=== PATIENT | male | born 1980 | race Two or more races ===

== ENCOUNTER 2023-01-21 16:00 | Inpatient (IN) | payer OTHER ==
[2023-01-21 16:48] VITALS: BMI 22.4
[2023-01-21] MEDS ORDERED: NALOXONE HCL (KLOXXADO) 8 MG SPRAY NS PRN (18:48)
[2023-01-21] MEDS ORDERED: LOPERAMIDE HCL 2 MG CAPSULE PO PRN (18:48)
[2023-01-21] MEDS ORDERED: IBUPROFEN 400 MG TABLET (FP) PO PRN (18:48)
[2023-01-21] MEDS ORDERED: hydrOXYzine PAMOATE 25 MG CAPSULE (FP) PO PRN (18:48)
[2023-01-21] MEDS ORDERED: ONDANSETRON *ODT* 4 MG TABLET SL PRN (18:48)
[2023-01-21] MEDS ORDERED: NALOXONE HCL 0.4 MG/ML VIAL IM PRN (18:48)
[2023-01-21] MEDS ORDERED: BISMUTH SUBSALICYLATE 524 MG/30 ML PO PRN (18:48)
[2023-01-21] MEDS ORDERED: P-EPHED 60MG/TRIPROLIDI 2.5MG TABLET PO PRN (18:48)
[2023-01-21] MEDS ORDERED: ACETAMINOPHEN 325 MG TABLET (FP) PO PRN ×2 (18:48)
[2023-01-21] MEDS ORDERED: BENZOCAINE/MENTHOL (CHLORASEPTIC ) LOZENGE MM PRN (18:48)
[2023-01-21] MEDS ORDERED: MAGNESIUM HYDROX 2400MG/30ML ORAL SUSPENSION 30 ML CUP PO PRN (18:48)
[2023-01-21] MEDS ORDERED: BENZONATATE 200 MG CAPSULE PO PRN (18:48)
[2023-01-21] MEDS ORDERED: POLYETHYLENE GLYCOL (HEALTHYLAX) 3350 17 GM PACKET PO PRN (18:48)
[2023-01-21] MEDS ORDERED: MAG HYDROX/AL HYDROX/SIMETH 30 ML UNIT-DOSE CUP PO PRN (18:48)
[2023-01-21] MEDS ORDERED: guaiFENesin 600 MG TABLET.ER (FP) PO PRN (18:48)
[2023-01-21] MEDS ORDERED: DICYCLOMINE HCL 10 MG CAPSULE ONE (19:43)
[2023-01-21] MEDS ORDERED: cloNIDine HCL 0.1 MG TABLET ONE (19:43)
[2023-01-21] MEDS ORDERED: METHOCARBAMOL 500 MG TABLET ONE (19:43)
[2023-01-21] MEDS: METHOCARBAMOL 500 MG TABLET PO PRN (19:49)
[2023-01-21] MEDS: cloNIDine HCL 0.1 MG TABLET PO PRN (19:49)
[2023-01-21] MEDS: DICYCLOMINE HCL 10 MG CAPSULE PO PRN (19:49)
[2023-01-21] MEDS: THIAMINE HCL 100 MG TABLET (FP) PO SCH (22:29)
[2023-01-21] MEDS: MELATONIN 5 MG TABLETS PO SCH (22:29)
[2023-01-22 10:13] LABS: POTASSIUM 4.1 mmol/L (3.5-5.1)
[2023-01-22 10:18] LABS: HEMATOCRIT 39.3 % (35.4-49); HEMOGLOBIN 13.2 GM/dL (11.7-16.9); MCH 29.4 pg (25.7-33.7); MCHC 33.7 g/dl (32.0-35.9); MEAN CELL VOLUME 87.4 fl (80-96); MEAN PLT VOLUME 8.4 fl (7.5-11.1); PLATELET COUNT 307 10^3/uL (134-434); RDW 13.2 % (11.9-15.9); WHITE BLOOD COUNT 5.7 K/mm3 (4.0-10.0)
[2023-01-22 10:21] LABS: BLOOD UREA NITROGEN 16.6 mg/dL (7-18)
[2023-01-22 10:22] LABS: ALBUMIN 3.6 g/dl (3.4-5.0); BILIRUBIN,TOTAL 0.7 mg/dL (0.2-1); TOT PROT 7.2 g/dl (6.4-8.2)
[2023-01-22 10:23] LABS: CALCIUM 9.7 mg/dL (8.5-10.1)
[2023-01-22] MEDS: METHOCARBAMOL 500 MG TABLET PO PRN ×2 (10:24→17:07)
[2023-01-22] MEDS: PRENATAL VITAMINS W/ FOLIC ACID TABLET (FP) PO SCH (10:24)
[2023-01-22] MEDS: DICYCLOMINE HCL 10 MG CAPSULE PO PRN (10:25)
[2023-01-22] MEDS: IBUPROFEN 600 MG TABLET (FP) PO PRN ×2 (10:25→17:08)
[2023-01-22] MEDS: MELATONIN 5 MG TABLETS PO SCH (22:57)
[2023-01-22] MEDS: THIAMINE HCL 100 MG TABLET (FP) PO SCH (22:57)
[2023-01-23 06:43] VITALS: PULSE 79
[2023-01-23 09:07] VITALS: BP 143/86; RESP 18; TEMP 98
[2023-01-23] MEDS: PRENATAL VITAMINS W/ FOLIC ACID TABLET (FP) PO SCH (09:57)
[2023-01-23] MEDS: cloNIDine HCL 0.1 MG TABLET PO PRN (09:57)
[2023-01-23] MEDS: IBUPROFEN 600 MG TABLET (FP) PO PRN (09:58)
== END 2023-01-23 12:20 | disposition other institution (70) | DRG 774 ==
LOC: YASAS 16:00 → Y6N 19:35
PROVIDERS: ADMIT Allergy & Immunology; ATTEND Surgery
PROC: HZ2ZZZZ Detoxification Services for Substance Abuse Treatment (ICD-10-PCS; principal; 2023-01-21)
DX: F14.20 Cocaine dependence, uncomplicated (principal)
CPT/HCPCS: 36415; 80053; 85027; 86780; 87635; 87811

== ENCOUNTER 2023-01-23 12:32 | Inpatient (IN) | payer OTHER ==
[~2023-01-23 12:32] MED LIST: ACETAMINOPHEN 325 MG TABLET (FP) PO PRN; AMMONIUM LACTATE 12% LOTION 225 GM BOTTLE TP PRN; BENZOCAINE/MENTHOL (CHLORASEPTIC ) LOZENGE MM PRN; BENZONATATE 200 MG CAPSULE PO PRN; COLLOIDAL OATMEAL 1 BAR EACH TP PRN; IBUPROFEN 400 MG TABLET (FP) PO PRN; IBUPROFEN 600 MG TABLET (FP) PO PRN; LOPERAMIDE HCL 2 MG CAPSULE PO PRN; MAG HYDROX/AL HYDROX/SIMETH 30 ML UNIT-DOSE CUP PO PRN; MAGNESIUM HYDROX 2400MG/30ML ORAL SUSPENSION 30 ML CUP PO PRN; NICOTINE 10 MG CARTRIDGE (INHALER) IH PRN; NICOTINE 7 MG/24 HOURS TOPICAL PATCH TD PRN; NICOTINE POLACRILEX 2 MG GUM BUC PRN; POLYETHYLENE GLYCOL (HEALTHYLAX) 3350 17 GM PACKET PO PRN; guaiFENesin 600 MG TABLET.ER (FP) PO PRN; hydrOXYzine PAMOATE 25 MG CAPSULE (FP) PO PRN
[2023-01-23] MEDS: THIAMINE HCL 100 MG TABLET (FP) PO SCH (21:11)
[2023-01-23] MEDS: MELATONIN 5 MG TABLETS PO SCH (21:11)
[2023-01-24] MEDS: PRENATAL VITAMINS W/ FOLIC ACID TABLET (FP) PO SCH (09:41)
[2023-01-24] MEDS: THIAMINE HCL 100 MG TABLET (FP) PO SCH (21:08)
[2023-01-24] MEDS: MELATONIN 5 MG TABLETS PO SCH (21:08)
[2023-01-25] MEDS: PRENATAL VITAMINS W/ FOLIC ACID TABLET (FP) PO SCH (09:33)
[2023-01-25] MEDS: THIAMINE HCL 100 MG TABLET (FP) PO SCH (21:22)
[2023-01-25] MEDS: MELATONIN 5 MG TABLETS PO SCH (21:22)
[2023-01-26] MEDS: PRENATAL VITAMINS W/ FOLIC ACID TABLET (FP) PO SCH (09:29)
[2023-01-26] MEDS: METHOCARBAMOL 500 MG TABLET PO PRN (16:38)
[2023-01-26] MEDS: MELATONIN 5 MG TABLETS PO SCH (21:29)
[2023-01-26] MEDS: THIAMINE HCL 100 MG TABLET (FP) PO SCH (21:29)
[2023-01-27] MEDS: PRENATAL VITAMINS W/ FOLIC ACID TABLET (FP) PO SCH (09:37)
[2023-01-27] MEDS: METHOCARBAMOL 500 MG TABLET PO PRN (09:38)
[2023-01-27] MEDS: THIAMINE HCL 100 MG TABLET (FP) PO SCH (21:21)
[2023-01-27] MEDS: MELATONIN 5 MG TABLETS PO SCH (21:21)
[2023-01-28 07:05] VITALS: RESP 18
[2023-01-28] MEDS: PRENATAL VITAMINS W/ FOLIC ACID TABLET (FP) PO SCH (09:45)
[2023-01-28] MEDS: METHOCARBAMOL 500 MG TABLET PO PRN ×2 (09:46→21:21)
[2023-01-28] MEDS: THIAMINE HCL 100 MG TABLET (FP) PO SCH (21:21)
[2023-01-28] MEDS: MELATONIN 5 MG TABLETS PO SCH (21:21)
[2023-01-29] MEDS: PRENATAL VITAMINS W/ FOLIC ACID TABLET (FP) PO SCH (09:54)
[2023-01-29] MEDS: METHOCARBAMOL 500 MG TABLET PO PRN (09:55)
[2023-01-29] MEDS: THIAMINE HCL 100 MG TABLET (FP) PO SCH (21:22)
[2023-01-29] MEDS: MELATONIN 5 MG TABLETS PO SCH (21:22)
[2023-01-30] MEDS: PRENATAL VITAMINS W/ FOLIC ACID TABLET (FP) PO SCH (09:30)
[2023-01-30] MEDS: THIAMINE HCL 100 MG TABLET (FP) PO SCH (21:19)
[2023-01-30] MEDS: MELATONIN 5 MG TABLETS PO SCH (21:19)
[2023-01-31 06:59] VITALS: BP 129/77; PULSE 79; TEMP 97.8
[2023-01-31] MEDS: PRENATAL VITAMINS W/ FOLIC ACID TABLET (FP) PO SCH (09:05)
== END 2023-01-31 09:35 | disposition home or self-care (01) | DRG 772 ==
LOC: YASAS 12:32 → Y5N 12:33
PROVIDERS: ADMIT Allergy & Immunology; ATTEND Psychiatry & Neurology Pain Medicine
PROC: HZ42ZZZ Group Counseling for Substance Abuse Treatment, Cognitive-Behavioral (ICD-10-PCS; principal; 2023-01-23)
DX: F14.20 Cocaine dependence, uncomplicated (principal)